=== PATIENT | female | born 1950 | race Caucasian/White ===

== ENCOUNTER 2020-08-21 11:02 | Emergency (ER) | payer MEDICARE, BC ==
[~2020-08-21] VITALS: Ht 165.1 cm; Wt 63.0 kg
[2020-08-21] MEDS ORDERED: SINGULAIR 10 MG10 MG PO (11:31)
[2020-08-21] MEDS ORDERED: TOPROL XL100 MG PO (11:31)
[2020-08-21] MEDS ORDERED: EFFEXOR XR37.5 MG PO (11:32)
[2020-08-21] MEDS ORDERED: PROTONIX40 M4 PO (11:32)
[2020-08-21] MEDS ORDERED: ZETIA10 MG PO (11:33)
[2020-08-21] MEDS ORDERED: CLONAZEPAM 0.50.5 M1 PO (11:33)
[2020-08-21] MEDS ORDERED: LISINOPRIL5 MG PO (11:33)
[2020-08-21] MEDS ORDERED: LAMICTAL200 MG PO (11:34)
[2020-08-21] MEDS ORDERED: REMERON15 M2 PO (11:34)
[2020-08-21] MEDS ORDERED: CLOTRIMAZOLE10 MG BUCCAL (12:08)
[2020-08-21 12:26] VITALS: BP 148/62
== END 2020-08-21 12:27 | disposition home or self-care (01) ==
LOC: M.ERS 11:02
DX: B34.9 Viral infection, unspecified (principal); Z20.828 Contact with and (suspected) exposure to other viral communicable diseases; H10.12 Acute atopic conjunctivitis, left eye; B37.9 Candidiasis, unspecified; E11.9 Type 2 diabetes mellitus without complications; I10 Essential (primary) hypertension; M79.7 Fibromyalgia; Z79.899 Other long term (current) drug therapy; Z91.041 Radiographic dye allergy status; Z88.6 Allergy status to analgesic agent; Z88.8 Allergy status to other drugs, medicaments and biological substances